=== PATIENT | male | born 1995 | race Caucasian/White ===

== ENCOUNTER 2018-04-30 02:54 | Emergency (ER) | payer BC, OTHER ==
[~2018-04-30] VITALS: Ht 193 cm; Wt 83.9 kg
--- OUTSIDE RECORDS SUMMARY | 2018-04-30 03:03 | XMS REPORT ---
Author Author Lizzette Navarrete [facility] Address [address] [place], [place] [id number] Care Team Providers Care Pantograph Operator Name Role Phone Lizzette Navarrete PCP Unavailable Aristides Escobar PreferredProvider Unavailable Allergies and Adverse Reactions Name Reaction Notes NO KNOWN DRUG ALLERGIES Plan of Treatment Planned Activity Comments Planned Date Planned Time Plan/Goal BMP 03/27/2014 12:00 AM Medications Name Start Date Expiration Date SIG Comments Levaquin 500 mg oral tablet 04/01/2013 04/08/2013 take 1 tablet (500 mg) by oral route once daily for 7 days doxycycline hyclate 100 mg oral capsule 04/17/2013 04/24/2013 take 1 capsule by oral route 2 times a day for 7 days Problem List Not available. Vital Signs Date Time BP-Sys(mm[Hg] BP-Fátima(mm[Hg]) HR(bpm) RR(rpm) Temp WT HT HC BMI BSA BMI Percentile O2 Sat(%) 04/26/2016 3:19:00 PM 110 mmHg 66 mmHg 88 bpm 18 rpm 101.5 F 174 lbs 75 in 21.75 kg/m2 2.04 m2 99 % 10/10/2015 2:45:00 PM 134 mmHg 79 mmHg 106 bpm 18 rpm 97.9 F 177.5 lbs 75 in 22.1858 kg/m 2.0641 m 39.7 % 100 % 03/27/2014 10:11:00 AM 98 mmHg 62 mmHg 88 bpm 18 rpm 96.8 F 161 lbs 75 in 20.12 kg/m2 1.97 m2 22.2 % 04/17/2013 10:03:00 AM 118 mmHg 78 mmHg 102 bpm 18 rpm 99.6 F 152 lbs 75 in 18.9985 kg/m 1.9101 m 14.8 % 04/01/2013 12:00:00 PM 122 mmHg 62 mmHg 92 bpm 18 rpm 97.8 F 142.5 lbs 74 in 18.30 kg/m2 1.84 m2 7.6 % 98 % 11/08/2012 2:56:00 PM 100 mmHg 64 mmHg 68 bpm 20 rpm 97.9 F 147 lbs 74 in 18.8735 kg/m 1.8658 m 16.5 % Social History Name Description Comments Tobacco Never smoker denies alcohol use History of Procedures Date Ordered Description Order Status 04/26/2016 12:00 AM INFLUENZA A/B AG EIA Returned 04/01/2013 12:00 AM THER/PROPH/DIAG INJ SC/IM Reviewed 04/01/2013 12:00 AM Decadron, Per 1 Mg [facility]# [address]-57 Reviewed 04/01/2013 12:00 AM Depo-Medrol, Per 80 Mg [facility]#0983-0416-82 Reviewed 04/17/2013 12:00 AM X-RAY EXAM OF HAND Reviewed 03/27/2014 12:00 AM COMPLETE CBC W/AUTO DIFF WBC Reviewed 03/27/2014 12:00 AM COMPREHEN METABOLIC PANEL Reviewed 03/27/2014 12:00 AM ELECTROCARDIOGRAM COMPLETE Reviewed Results Summary Data and Description Results 03/27/2014 11:31 AM GLUCOSE 88.0 mg/dLSODIUM 139.0 mmol/LPOTASSIUM 4.40 mmol/ LCHLORIDE 107.0 mmol/LCO2 26.0 mmol/LBUN 14.0 mg/dLCREATININE 0.80 mg/dLSGOT/ AST 65.0 IU/LSGPT/ALT 82.0 IU/LALK PHOS 157.0 IU/LTOTAL PROTEIN 7.0 g/dLALBUMIN 4.20 g/dLTOTAL BILI 0.70 mg/dLCALCIUM 9.60 mg/dLAGE 18 GFR NonAA 126 GFR AA 153 eGFR 60 eGFR AA* 60 WBC 5.8 RBC 5.00 HGB 14.50 g/dLHCT 42.90 %MCV 86.0 fLMCH 29.0 pgMCHC 33.80 g/dLRDW SD 43 RDW CV 13.90 %MPV 11.0 fLPLT 123 NRBC# 0.00 NRBC % 0.0 %NEUT 36.30 %%LYMP 42.30 %%MONO 15.0 %%EOS 3.60 %%BASO 2.80 %#NEUT 2.11 # LYMP 2.46 #MONO 0.87 #EOS 0.21 #BASO 0.16 MANUAL DIFF SEE BELOW SEGS 40 BANDS 2 LYMPHS 38 MONOS 16 EOS 4.0 % History Of Immunizations Not available. History of Past Illness Name Date of Onset Comments *No known medical problems General Medical Exam, School/Work/etc Nov 08 2012 3:05PM Bronchitis, Acute Apr 01 2013 12:03PM Pain in joint; hand Apr 17 2013 10:07AM Upper Respiratory Infection Apr 17 2013 10:07AM Syncope Mar 27 2014 10:20AM Elevated liver enzymes Mar 27 2014 3:18PM Hemorrhoids Oct 10 2015 2:49PM Fever Apr 26 2016 3:22PM Body aches Apr 26 2016 3:22PM Payers Insurance Name Company Name Plan Name Plan Number Policy Number Policy Group Number Start Date [facility] [id number] June History of Encounters Visit Date Visit Type Provider 04/26/2016 Office visit Lizzette Navarrete APRN 10/10/2015 Office visit Aristides Escobar MD 03/27/2014 Office visit Aristides Escobar MD 04/17/2013 Office visit Aristides Escobar MD 04/01/2013 Office visit Chaim Harris APRN 11/08/2012 Office visit Aristides Escobar MD
--- OUTSIDE RECORDS SUMMARY | 2018-04-30 03:03 | XMS REPORT ---
Author Author Aristides Escobar [facility] Address [address] [place], [place] [id number] Care Team Providers Care Multifocal Lens Inspector Name Role Phone Aristides Escobar PCP Unavailable Allergies and Adverse Reactions Name Reaction Notes NO KNOWN DRUG ALLERGIES Plan of Treatment Planned Activity Comments Planned Date Planned Time Plan/Goal METABOLIC PANEL TOTAL CA 03/27/2014 12:00 AM Medications Name Start Date [...] HC BMI BSA BMI Percentile O2 Sat(%) 10/10/2015 2:45:00 PM 134 mmHg 79 mmHg 106 bpm 18 rpm 97.9 F 177.5 lbs 75 in 22.19 kg/m2 2.06 m2 39.7 % 100 % 03/27/2014 10:11:00 AM 98 mmHg 62 mmHg 88 bpm 18 rpm 96.8 F 161 lbs 75 in 20.1234 kg/m 1.9658 m 22.2 % 04/17/2013 10:03:00 AM 118 mmHg 78 mmHg 102 bpm 18 rpm 99.6 F 152 lbs 75 in 19.00 kg/m2 1.91 m2 14.8 % 04/01/2013 12:00:00 PM 122 mmHg 62 mmHg 92 bpm 18 rpm 97.8 F 142.5 lbs 74 in 18.2957 kg/m 1.8371 m 7.6 % 98 % 11/08/2012 2:56:00 PM 100 mmHg 64 mmHg 68 bpm 20 rpm 97.9 F 147 lbs 74 in 18.87 kg/m2 1.87 m2 16.5 % Social History Name Description Comments Tobacco Never smoker denies alcohol use History of Procedures Date Ordered Description Order Status 04/01/2013 12:00 AM THER/PROPH/DIAG INJ SC/IM Reviewed 04/01/2013 12:00 AM Decadron, Per 1 Mg [facility]# [address]-41 Reviewed 04/01/2013 12:00 AM Depo-Medrol, Per 80 Mg [facility]#0273-6733-20 Reviewed 04/17/2013 12:00 AM X-RAY EXAM OF [...] g/dLALBUMIN 4.20 g/dLTOTAL BILI 0.70 mg/dLCALCIUM 9.60 mg/dLeGFR 60 WBC 5.8 RBC 5.00 HGB 14.50 g/dLHCT 42.90 %MCV 86.0 fLMCH 29.0 pgMCHC 33.80 g/dLRDW CV 13.90 %MPV 11.0 fLPLT 123 %NEUT 36.30 %%LYMP 42.30 %%MONO 15.0 %%EOS 3.60 %%BASO 2.80 %# NEUT 2.11 #LYMP 2.46 #MONO 0.87 #EOS 0.21 #BASO 0.16 EOS 4.0 % History Of Immunizations Not [...] 2014 3:18PM Hemorrhoids Oct 10 2015 2:49PM Payers Insurance Name Company Name Plan Name Plan Number Policy Number Policy Group Number Start Date [id number] June History of Encounters Visit Date Visit Type Provider 10/10/2015 Office visit Aristides Escobar MD 03/27/2014 Office visit Aristides Escobar MD 04/17/2013 Office visit Aristides Escobar MD 04/01/2013 Office visit Chaim Harris APRN 11/08/2012 Office visit Aristides Escobar MD
--- OUTSIDE RECORDS SUMMARY | 2018-04-30 03:04 | XMS REPORT | Continuity of Care Document ---
Author Author [facility] Organization [facility] Address Unknown Phone Unavailable Allergies There is no data. Medications There is no data. Problems There is no data. Procedures There is no data. Results There is no data. Encounters ACCT No. Visit Date/Time Discharge Status Pt. Type Provider Facility Loc./Unit Complaint [id number] 04/26/2016 15:58:20 04/26/2016 23:59:59 [facility] Outpatient Lizzette Navarrete [id number] 10/10/2015 15:33:28 10/10/2015 23:59:59 [facility] Outpatient Aristides Escobar [id number] 03/27/2014 10:54:48 03/27/2014 23:59:59 [facility] Outpatient Aristides Escobar [id number] 04/17/2013 10:41:19 04/17/2013 23:59:59 [facility] Outpatient Aristides Escobar [id number] 04/01/2013 12:58:27 04/01/2013 23:59:59 [facility] Outpatient Chaim Harris
[2018-04-30] MEDS ORDERED: NAPR-915 PO ×2 (03:38→03:43)
--- NOTE | 2018-04-30 03:39 | ED Upper Extremity ---
General Chief Complaint: Upper Extremity Stated Complaint: RT SHOULDER OUT OF PLACE-FALL Nursing Triage Note: Pt arrived by private vehicle for injury to right shoulder, possibly out of place. Pt stated he was walking an fell, landing on right shoulder. Pt thinks it is out of place. Increased pain when moving shoulder. Pt has had 4-5 drinks (beer) tonight. Nursing Sepsis Screen: No Definite Risk Source: patient History of Present Illness Date Seen by Provider: Apr 30, 2018 Time Seen by Provider: 03:08 Initial Comments PT ARRIVES VIA POV STATES HE WAS WALKING AND TRIPPED/FELL, LANDING ON RIGHT SHOULDER STATES SHE THINKS IT IS OUT OF PLACE NO PARESTHESIAS OR MOTOR DEFICITS NO PRIOR INJURY TO THIS SHOULDER PT IS RIGHT HANDED DID NOT HIT HEAD AND NO LOSS OF CONSCIOUSNESS NO NECK OR BACK PAIN NO OTHER INJURIES PT HAS HAD 4-5 BEERS TONIGHT PCP: JUNIOR ELLSWORTH Allergies and Home Medications Allergies Coded Allergies: No Known Drug Allergies (Unverified , 04/30/18) Home Medications Naproxen 500 Mg Tablet, 500 MG PO BID Prescribed by: SARA KAPADIA on 04/30/18 0337 Patient Home Medication List Home Medication List Reviewed: Yes Review of Systems Constitutional: no symptoms reported EENTM: no symptoms reported Respiratory: no symptoms reported Cardiovascular: no symptoms reported Gastrointestinal: no symptoms reported Genitourinary: no symptoms reported Musculoskeletal: see HPI Skin: no symptoms reported Psychiatric/Neurological: No Symptoms Reported Past Iudrghm-[id number]-Iiqqfn Hx Patient Social History Alcohol Use: Occasionally Uses Number of Drinks Today: 5 Alcohol Beverage of Choice: Beer Recreational Drug Use: No Smoking Status: Never a Smoker 2nd Hand Smoke Exposure: No Recent Foreign Travel: No Contact w/Someone Who Travel: No Recent Infectious Disease Expo: No Recent Hopitalizations: No Physical Abuse: No Sexual Abuse: No Mistreated: No Fear: No Seasonal Allergies Seasonal Allergies: No Past Medical History Surgeries: No Respiratory: No Cardiac: No Neurological: No Genitourinary: No Gastrointestinal: No Musculoskeletal: No Endocrine: No HEENT: No Cancer: No Psychosocial: No Integumentary: No Blood Disorders: No Physical Exam Vital Signs Vital Signs - First Documented 04/30/18 03:25 Temp 96.1 Pulse 97 Resp 18 B/P (MAP) 119/86 (97) Pulse Ox 100 O2 Delivery Room Air Capillary Refill : Less Than 3 Seconds Height, Weight, BMI Height: 6'4.00" Weight: 185lbs. oz. 83.048695pt; BMI Method:Stated General Appearance: WD/WN, no apparent distress, other (SMILING, COOPERATIVE. SPEECH CLEAR, GAIT STEADY, FAINT ODOR OF ETOH) HEENT: PERRL/EOMI Neck: non-tender, full range of motion, supple, normal inspection Cardiovascular: normal peripheral pulses, regular rate, rhythm, no murmur Respiratory: chest non-tender, normal breath sounds Gastrointestinal: non tender, soft Back: normal inspection, no CVA tenderness, no vertebral tenderness Shoulder: asymmetry, bone tenderness, deformity (RIGHT DISTAL CLAVICLE ELEVATED. ), limited ROM (DUE TO PAIN ), soft tissue tenderness; No swelling Elbow/Forearm: normal inspection Wrist: Yes normal inspection Hand: normal inspection Neurologic/Tendon: normal sensation, normal motor functions, normal tendon functions Neurologic/Psychiatric: alining inspector II-XII nml as tested, no motor/sensory deficits, alert, normal mood/affect, oriented x 3 Skin: normal color, warm/dry; No ecchymosis Procedures/Interventions Splinting and Joint Reduction : Arm Sling: [place] Progress/Results/Core Measures Results/Orders My Orders Orders - SARA KAPADIA DO Shoulder, Right, 3 Views (04/30/18 03:11) Ed Ortho Supplies Order (04/30/18 03:33) Rx-Naproxen (Rx-Naprosyn) (04/30/18 03:45) Vital Signs/I&O 04/30/18 03:25 Temp 96.1 Pulse 97 Resp 18 B/P (MAP) 119/86 (97) Pulse Ox 100 O2 Delivery Room Air Blood Pressure Mean: 97 Diagnostic Imaging Comments XRAYS RIGHT SHOULDER--AC SEPARATION, NO HUMERUS DISLOCATION. NO FRACTURES. PENDING RADIOLOGIST REVIEW Departure Impression Primary Impression: Separation of right acromioclavicular joint Disposition: 01 HOME, SELF-CARE Condition: Stable Departure-Patient Inst. Referrals: DAVID HOLBROOK MD (PCP) Primary Care Physician ROGELIO FAULKNER MICHAEL P MD ORTHO 4 STATES Patient Instructions: How to Use a Shoulder Sling, Shoulder Add. Discharge Instructions: WEAR SLING AT ALL TIMES ICE TO AREA AT 20 MINUTE INTERVALS TYLENOL NEEDED FOR PAIN FOLLOW UP WITH ORTHOPEDIC SURGEON OF CHOICE--DR. WILSON OR ORTHO 4 STATES-- CALL ON WEDNESDAY FOR FOLLOW UP All discharge instructions reviewed with patient and/or family. Voiced understanding. Scripts Naproxen (Naproxen) 500 Mg Tablet 500 MG PO BID, #20 TAB Prov: SARA KAPADIA DO 04/30/18 SARA KAPADIA DO Apr 30, 2018 03:38
[2018-04-30] MEDS ORDERED: RX-NAPROXEN (NAPROSYN) 250 MG TAB PPK#4 PO ONE (03:45)
[2018-04-30 03:47] VITALS: BP 123/80
--- NOTE | 2018-04-30 06:23 | Diagnostic Imaging Report ---
EXAMINATION: Right shoulder radiographs, 4 views. COMPARISON: None. HISTORY: 22-year-old male, fall. Right shoulder pain. FINDINGS: The distal clavicle is superiorly subluxed relative to the acromion by 100% measured at 12 mm. There is no gross widening of the acromioclavicular joint. There does appear to be increased coracoclavicular distance. There is no identified acute fracture. The humeral head is normally aligned relative to the glenoid. IMPRESSION: Findings compatible with acromioclavicular joint separation injury with 100% superior displacement of the distal clavicle relative to the acromion. Increased coracoclavicular distance does raise concern for coracoclavicular ligament injury. Dictated by: Dictated on workstation # [id number]
== END 2018-04-30 03:47 | disposition home or self-care (01) ==
LOC: ER 02:59
DX: S43.121A Dislocation of right acromioclavicular joint, 100%-200% displacement, initial encounter (principal); W01.0XXA Fall on same level from slipping, tripping and stumbling without subsequent striking against object, initial encounter
CPT/HCPCS: 73030